=== PATIENT | female | born 1960 | race Caucasian/White ===

== ENCOUNTER 2021-01-04 08:39 | Outpatient (REF) | payer MEDICAID, SELFPAY ==
--- NOTE | ~2021-01-04 | XR_ITS ---
EXAMINATION: XR LUMBAR SPINE XR HIP, RIGHT CLINICAL INFORMATION: Back and right hip pain. COMPARISON: None TECHNIQUE: AP, lateral, and coned-down views of the lumbosacral spine. AP and frog-leg lateral views of the right hip. FINDINGS: Lumbar spine: Normal vertebral body alignment. The lumbar lordosis is maintained. No acute fracture or subluxation. No loss of vertebral body or intervertebral disc height. No lytic or blastic osseous lesion. Mild osteopenia. Bilateral facet arthropathy at L4-L5 and L5-S1. Right hip: No acute fracture or dislocation. Minimal joint space narrowing with tiny lateral acetabular marginal osteophytes. No osseous erosion. No abnormal soft tissue calcification. XR/XR hip RT min 2V IMPRESSION: Lumbar spine: Bilateral facet arthropathy at L4-L5 and L5-S1. Osteopenia. Right hip: Minimal degenerative arthritis.
--- NOTE | ~2021-01-04 | XR_ITS ---
EXAMINATION: XR LUMBAR SPINE XR HIP, RIGHT CLINICAL INFORMATION: Back and right hip pain. COMPARISON: None TECHNIQUE: AP, lateral, and coned-down views of the lumbosacral spine. AP and frog-leg lateral views of the right hip. FINDINGS: Lumbar spine: Normal vertebral body alignment. The lumbar lordosis is maintained. No acute fracture or subluxation. No loss of vertebral body or intervertebral disc height. No lytic or blastic osseous lesion. Mild osteopenia. Bilateral facet arthropathy at L4-L5 and L5-S1. Right hip: No acute fracture or dislocation. Minimal joint space narrowing with tiny lateral acetabular marginal osteophytes. No osseous erosion. No abnormal soft tissue calcification. XR/XR lumbar spine 2-3V IMPRESSION: Lumbar spine: Bilateral facet arthropathy at L4-L5 and L5-S1. Osteopenia. Right hip: Minimal degenerative arthritis.
[2021-01-04 09:26] LABS: Hematocrit 38.5 % (37-47); Hemoglobin 12.3 g/dl (12.0-16.0); Mean Corpuscular HGB Conc 31.9 g/dl (31.0-35.0); Mean Corpuscular Hemoglobin 27.5 pg (27.0-33.0); Mean Corpuscular Volume 86.1 fL (80-98); Mean Platelet Volume 9.5 fL (9.4-12.3); Platelet Count 296 X10*3/uL (160-400); Red Blood Count 4.47 X10*6/uL (4.20-5.50); Red Cell Distribution Width 12.6 % (11.0-16.0); White Blood Count 7.6 X10*3/uL (4.8-10.8)
[2021-01-04 09:32] LABS: Estimated Average Glucose 114 mg/dL; Hemoglobin A1c % 5.6 %
[2021-01-04 09:50] LABS: Alanine Aminotransferase 32 U/L (0-31); Albumin Level 4.1 g/dL (3.5-5.0); Alkaline Phosphatase 182 U/L (39-117); Anion Gap 12 (12-20); Aspartate Amino Transferase 23 U/L (5-31); Bilirubin Total 0.7 mg/dL (0.0-1.0); Blood Urea Nitrogen 18 mg/dL (9-16); Calcium 9.1 mg/dL (8.4-10.2); Carbon Dioxide 26 mmol/L (22-29); Chloride 108 mmol/L (96-108); Cholesterol 211 mg/dL; Estimated Glomerular Filt Rate > 60; Glucose Random 93 mg/dL (60-115); HDL Cholesterol 42 mg/dL; LDL Cholesterol Calculated 149 mg/dl; Sodium 142 mmol/L (135-145); Total Protein 7.3 g/dL (6.5-8.0); Triglycerides 103 mg/dL
[2021-01-04 10:05] LABS: Thyroid Stimulating Hormone 1.05 uIU/mL (0.32-4.0)
== END 2021-01-04 08:40 | disposition home or self-care (01) ==
LOC: HO.LAB 08:39
PROVIDERS: PCP Internal Medicine; Visit Provider General Practice
DX: E78.00 Pure hypercholesterolemia, unspecified (principal); R51.9 Headache, unspecified; M25.551 Pain in right hip
CPT/HCPCS: 36415; 72100; 73502; 80053; 80061; 83036; 84443; 85027

== ENCOUNTER 2021-01-27 15:05 | Emergency (ER) | payer MEDICAID, SELFPAY ==
[2021-01-27 15:11] VITALS: BP 125/70; PULSE 90; RESP 18; TEMP 36.6; O2SAT 98; BMI 31.5
--- NOTE | 2021-01-27 17:12 | ED.HA ---
HPI - Headache General Chief Complaint: Headache Stated Complaint: headache Time Seen by Provider: 01/27/21 16:19 Source: patient and family (Daughter) Mode of arrival: ambulatory Limitations: no limitations History of Present Illness HPI Narrative: Patient comes to the emergency room complaining a headache. 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 Patient states that she has had a headache since yesterday around noon. Patient has known history of migraines. Patient denies dizziness, no photophobia, no nausea, no eye pain or visual changes, no chest pain or shortness of breath. Patient states that she has been prescribed a medication for migraines in the past, does not recall the name. Did not work. In addition, patient took ibuprofen but had noted relief. MD elicited complaint: headache Related Data Previous Rx's Medication Instructions Recorded [id number]-[id number] 1 cap PO TID PRN #10 cap 01/27/21 [Fioricet] Allergies Allergy/AdvReac Type Severity Reaction Status Date / Time No Known Allergies Allergy Mild N/A Unverified 07/13/20 17:34 Review of Systems Review of Systems: Constitutional : No Weight loss, No Fever, No Chills, No Night Sweats, No Fatigue, No Malaise ENT/Mouth : No Hearing loss, No Ear Pain, No Nasal Congestion, No Sinus Pain, No Hoarseness, No sore throat, No Rhinorrhea, No Swallowing Difficulty Eyes: No Eye Pain, No Swelling, No Redness, No Foreign Body, No Discharge, No Vision Changes Cardiovascular : No Chest Pain, No SOB, No Dyspnea on Exertion, No Orthopnea, No Edema, No Palpitations Respiratory : No Cough, No Sputum, No Wheezing, No Smoke Exposure, No Dyspnea Gastrointestinal : No Nausea, No Vomiting, No Diarrhea, No Constipation, No abdominal Pain, No Hematochezia, No Melena Genitourinary : no irregular bleeding, No Dysuria, No Urinary Frequency, No Hematuria, No Urinary Incontinence, No Urgency, No Flank Pain, No Urinary Flow Changes, No Hesitancy Musculoskeletal : No joint pain, No Myalgias, No Joint Swelling Skin : No Skin Lesions, No rash Neuro : No Weakness, No Numbness, No Paresthesias, No Loss of Consciousness, No Dizziness, causing a headache, constant global pressure Psych : No Anxiety/Panic, No Depression, No SI/HI/AH/VH, No Social Issues, Heme/Lymph: No Bruising, No Bleeding,No Lymphadenopathy Endocrine : No Polyuria, No Polydipsia, No Temperature Intolerance [facility] Past Medical History Medical History HLD (hyperlipidemia) Migraine Social History Social History Alcohol intake: never Smoking Status: Never smoker Use of substances other than those prescribed or required for medical reasons: No Advance Directives: No Advance Directives Information Provided: No Physical Exam Vital Signs: Vital Signs: Last Vital Signs Temp 98.7 F 01/27/21 18:07 Pulse 74 01/27/21 18:07 Resp 14 01/27/21 18:07 BP 136/83 01/27/21 18:07 Pulse Ox 99 01/27/21 18:07 Body Mass Index 31.5 Appearance: Alert. Oriented X3. No acute distress. Eyes: Pupils equal, round and reactive to light. ENT: Pharynx normal. Neck: Normal inspection. Neck supple. No lymph nodes noted. No crepitus CVS: Normal heart rate and rhythm. Pulses normal. Normal S1 and S2 Respiratory: No respiratory distress. Breath sounds normal. No Wheezing. No rales Abdomen: Soft and nontender. No rigidity. No distention. good BS x4 Skin: Skin warm and dry. Normal skin color. Normal skin turgor. Extremities: No lower extremity edema. No lower extremity edema. No Lacerations. No Rash Neuro: Oriented X 3. No motor deficit. No sensory deficit. Moving all extermities. No slurred speech. Course Course Course Narrative: Patient states that she feels much better, ready to be discharged home. Instructed to follow up with neurology for recurrent migraine headaches. Discharge Plan Discharge Clinical Impression: Migraine Qualifiers: Migraine type: unspecified Status migrainosus presence: without status migrainosus Intractability: not intractable Qualified Code(s): G43.909 - Migraine, unspecified, not intractable, without status migrainosus Patient Disposition: Home, Self-Care Instructions: Migraine Headache (ED) Additional Instructions: Please follow-up with your primary care physician tomorrow. If you have any worsening or new symptoms, please return to the emergency room or call 911 Prescriptions: New rdkbckqtzz-[id number] [Fioricet] 50-300-40 mg capsule 1 cap PO TID PRN (Reason: pain) Qty: 10 RF: 0 Referrals: Pedrito Ewing MD [Physician] - 2 days Interventions: ED Discharge Assessment Last Done: 01/27/21 18:54
[2021-01-27] MEDS: Metoclopramide HCl 10 MG/2 ML VIAL IVPUSH (17:35)
[2021-01-27] MEDS: diphenhydrAMINE HCL 50 MG/ML VIAL 25 MG IVPUSH (17:35)
[2021-01-27] MEDS: 0.9 % Sodium Chloride 1,000 ML 999 ML IVCONT (17:35)
[2021-01-27] MEDS: Ketorolac Tromethamine 30 MG/ML VIAL IVPUSH (17:36)
[2021-01-27 18:07] VITALS: BP 136/83; PULSE 74; RESP 14; TEMP 37.1; O2SAT 99
--- NOTE | 2021-01-27 18:54 | PC.NURSE ---
FAMILY REQUESTING DC. MD AWARE. FAMILY ASKING WHY PT IS BEING HELD HERE IF WE COULD GET COVID WHEN WE ARE READY TO LEAVE. PT AND FAMILY EDUCATED ABOUT FLOW OF ED.
--- NOTE | 2021-01-27 18:57 | PC.NURSE ---
Patient's family member came up to [facility] and stated that her mother was waiting for 15 minutes to use the bathroom and if she went to bathroom by herself and fell it would be our fault. Daughter was very rude to staff. She stated she wanted to see the MD and wanted to be discharged soon. MD made aware of request.
== END 2021-01-27 19:11 | disposition home or self-care (01) ==
PROVIDERS: Emergency Provider Emergency Medicine; PCP Internal Medicine
DX: G43.909 Migraine, unspecified, not intractable, without status migrainosus (principal); E78.5 Hyperlipidemia, unspecified
CPT/HCPCS: 96361; 96374; 96375; 99284; 99285; J1200; J1885; J2765